=== PATIENT | male | born 1945 | race Caucasian/White ===

== ENCOUNTER 2020-12-24 05:34 | Emergency (ER) | payer OTHER ==
[~2020-12-24] VITALS: Ht 188 cm; Wt 86.2 kg
[~2020-12-24 05:34] MED LIST: ASPIRIN EC81 M1 PO; BACLOFEN 10 MG10 MG PO; BISACODYL SUPP10 MG RECTAL; CARVEDILOL12.5 MG PO; CARVEDILOL25 MG PO; COUMADIN6 MG PO; CRESTOR5 MG PO; K-DUR 20 MEQ T20 MEQ PO; LASIX 40 MG TAB40 M1 PO; LISINOPRIL10 MG; LISINOPRIL2.5 MG PO; MULTAQ 400 MG400 MG PO; NICOTINE TRANSD14 M1 TD; NITROQUICK0.4 MG SUBLING; OXYCODON-ACETA1 EAC1 PO; PAIN & FEVER325 MG PO; PROSCAR 5MG TABL5 M1 PO; PROTONIX40 M2 PO; SYMBICORT160 MCG/4. INH; TAMSULOSIN HCL0.4 M1 PO; TRAMADOL 50 MG50 MG PO
[2020-12-24 05:52] LABS: BE(vivo) -6.1 mmol/L (-2 to +3); HCO3 20.5 mmol/L (22.0-26.0); PCO2 44.6 mmHg (35.0-45.0); PO2 165.2 mmHg (80.0-100.0); sO2 98.9 % (92.0-98.0)
[2020-12-24 05:53] LABS: pH 7.281 (7.360-7.450)
[2020-12-24 06:06] LABS: ABSOLUTE NEUTROPHILS 3.5 thou/uL (1.4-8.2); BASOPHILS 1.1 % (0.0-2.0); EOSINOPHILS 0.8 % (0.0-3.0); HEMATOCRIT 46.9 % (42.0-52.0); HEMOGLOBIN 15.4 gm/dL (14.0-18.0); LYMPHOCYTES 42.3 % (24.0-44.0); MCH 33.1 pg (26.0-34.0); MCHC 32.8 g/dL (28.0-37.0); MCV 100.9 fL (80.0-100.0); MONOCYTES 7.4 % (1.0-8.0); PLATELET COUNT 169 thou/uL (150-400); POLYS 48.4 % (36.0-66.0); RBC 4.65 mil/uL (4.50-6.00); RDW 18.3 % (10.5-14.5); WBC 7.3 thou/uL (4.0-11.0)
[2020-12-24 06:15] LABS: ANION GAP 4 mmol/L (7-16); BUN 25 mg/dL (7-18); CALCIUM 8.7 mg/dL (8.5-10.1); CHLORIDE 102 mmol/L (98-107); CO2 32 mmol/L (21-32); CREATININE 1.1 mg/dL (0.7-1.3); GLUCOSE 191 mg/dL (74-106); POTASSIUM 4.6 mmol/L (3.5-5.1); SODIUM 138 mmol/L (136-145)
[2020-12-24 06:32] LABS: ALBUMIN 3.8 g/dL (3.4-5.0); DIRECT BILIRUBIN 0.1 mg/dL (<0.1-0.2); SGOT 17 U/L (15-37); SGPT 27 U/L (30-65); TOTAL BILIRUBIN 0.6 mg/dL (0.2-1.0); TOTAL PROTEIN 6.4 g/dL (6.4-8.2); TROPONIN-I <0.06 ng/mL (<0.06)
[2020-12-24 06:59] LABS: PROTIME 11.3 Seconds (9.3-11.4)
[2020-12-24] MEDS ORDERED: ELIQUIS5 MG PO (07:16)
[2020-12-24] MEDS ORDERED: HYDROCODON-ACE1 EA11 PO (07:17)
[2020-12-24] MEDS ORDERED: CHLORPROMAZINE25 M3 PO (07:18)
[2020-12-24] MEDS ORDERED: CRESTOR5 MG PO (07:19)
[2020-12-24 08:29] LABS: BE(vivo) 1.4 mmol/L (-2 to +3); HCO3 26.1 mmol/L (22.0-26.0); PCO2 41.9 mmHg (35.0-45.0); PO2 125.7 mmHg (80.0-100.0); pH 7.413 (7.360-7.450); sO2 98.5 % (92.0-98.0)
[2020-12-24] MEDS ORDERED: PREDNISONE 10 M10 MG PO (11:48)
[2020-12-24 12:00] VITALS: BP 142/98
--- NOTE | 2020-12-25 08:05 | EKG ---
[address] [address] ELECTROCARDIOGRAM REPORT Name: LEVON SANDS Room [facility]: [id number] Admission: 12/24/20 Attend Phys: Discharge: 12/24/20 Date of : 47 Report #: [id number] [facility] ED Test Date: 2020-12-24 Test Time: 07:04:06 Pat Name: LEVON SANDS Department: Room: Gender: M Tile Layer: JSHORT1 : 1945 Requested By: Erika Carrillo Order Number: [id number] MD: Acosta Manuel Measurements Intervals [place] Rate: 89 P: [place]: QRS: -82 QRSD: 138 T: 51 QT: 417 QTc: 508 Interpretive Statements Atrial fibrillation RBBB and LAFB Compared to ECG 02/08/2013 20:08:25 Bifascicular block no longer present Myocardial infarct finding no longer present Electronically Signed On 12-25-2020 8:05:32 ADVERTISING [employer]OB [employer]ITLES by Acosta Manuel [email or web address] <ELECTRONICALLY SIGNED> By: Acosta Manuel MD 12/25/20804 3 3 Acosta Manuel MD /RANGEL
== END 2020-12-24 12:00 | disposition home or self-care (01) ==
LOC: ER 05:34
PROVIDERS: Emergency Medicine
DX: J44.1 Chronic obstructive pulmonary disease with (acute) exacerbation (principal); I48.91 Unspecified atrial fibrillation; I10 Essential (primary) hypertension; I25.2 Old myocardial infarction; F17.210 Nicotine dependence, cigarettes, uncomplicated; Z79.899 Other long term (current) drug therapy; Z20.822 Contact with and (suspected) exposure to COVID-19